=== PATIENT | male | born 2005 | race Caucasian/White ===

== ENCOUNTER 2023-10-19 15:15 | Emergency (ER) | payer OTHER, SELFPAY ==
--- NOTE | 2023-10-19 15:19 | EXP.UTC ---
Discharge Plan Disposition Patient Disposition: Home, Self-Care Condition: Good Prescriptions Prescriptions: New magnesium citrate [OneLAX Magnesium Citrate] Solution 150 ml PO BID Qty: 296 0RF polyethylene glycol 3350 [Miralax] 17 gram/dose powder 17 g PO BID 5 Days Qty: 170 0RF Rx Instructions: Mix with 8 ounces of Gatorade Referrals Follow up/Referrals: Danielle Lopez [Primary Care Provider] - See instructions Activity Restrictions/Add. Instructions Additional Instructions/Restrictions: Return to clinic if symptoms do not improve Clinical Impressions Clinical Impression: Constipation Instructions Patient Instructions: DI for Constipation Print Language Print Language: Mongolian Discharge ED Provider: Shi Nash [facility] HPI General Stated complaint: abd pain Time Seen by Provider: 10/19/23 16:01 History of Present Illness Provider Complaint: LLQ pain. Started 2 days ago while sitting still. Got worse. Has eased up a bit today. No urinary complaints. Normal bowel movements. No fever. No nausea, vomiting, diarrhea. No positional changes seem to make pain better or worse. Onset (ago): day(s) (2) Location: abdomen Radiation: non-radiation Relieving factors: none Exacerbating factors: none Associated symptoms: denies other symptoms Treatments prior to arrival: none Related Data Previous Rx's ?Medication ?Instructions ?Recorded magnesium citrate (OneLAX 150 ml PO BID #296 mL 10/19/23 Magnesium Citrate oral solution) polyethylene glycol 3350 17 17 g PO BID 5 days #170 grams 10/19/23 gram/dose oral powder (Miralax) Allergies Allergy/AdvReac Type Severity Reaction Status Date / Time No Known Allergies Allergy Verified 10/19/23 15:37 [facility] Disclaimer: The information contained in this section may have been updated after the patient was seen, as this information can be updated by other users. Surgical History (Updated 10/19/23 @ 15:37 by Funmi Clay RN) History of ear surgery History of tympanostomy tube placement Social History Smoking Status: Never smoker alcohol intake: never current occupational status: employed Travel in the last 8 weeks: None ROS Obtained: Yes All systems reviewed & no additional complaints except as documented Gastrointestinal Gastrointestingal: Reports abdominal pain Physical Exam General General appearance: alert and in no apparent distress Head Head exam: atraumatic, normocephalic and normal inspection Eye Eye exam: Present normal appearance, PERRL and EOMI ENT ENT exam: Present normal exam, normal oropharynx, mucous membranes moist, TM's normal bilaterally and normal external ear exam Neck Neck exam: Present normal inspection, full ROM and trachea midline; Absent meningismus or lymphadenopathy Chest Chest inspection: Present normal inspection and symmetric chest wall rise; Absent tenderness Respiratory Respiratory exam: Present normal lung sounds bilaterally; Absent respiratory distress Cardiovascular Cardiovascular exam: Present regular rate and normal rhythm; Absent JVD Abdominal Exam Abdominal exam: Present soft, tenderness and normal bowel sounds; Absent distention or guarding Abdominal tenderness: Present LLQ Extremities Exam Extremities exam: Present normal inspection, full ROM and normal capillary refill; Absent calf tenderness Back Exam Back exam: Present normal inspection; Absent tenderness or CVA tenderness (L) Neurological Exam Neurological exam: Present alert and oriented X3 Psychiatric Psychiatric exam: Present normal affect and normal mood Skin Skin exam: Present warm, dry, intact and normal color Lymphatic Lymphatic Findings: no adenopathy Medical Decision Making Shawn Inquiry Pt receiving controlled substance: No Lab Data Lab results reviewed: Yes I reviewed the patient's lab results. Radiology Data #1: Image(s): Chest and Abdomen Image Reviewed: Yes I rev
[2023-10-19 15:35] VITALS: BP 129/75; PULSE 65; RESP 19; TEMP 37.4; O2SAT 97; BMI 28.3
[2023-10-19 15:50] LABS: Apearance,Urine Clear (Clear); Bilirubin,Urine Negative (Negative); Blood, Urine Negative (Negative); Color,Urine Yellow (Yellow); Glucose,Urine (UA) Negative (Negative); Ketones,Urine Negative (Negative); Protein,Urine Negative (Negative); Specific Gravity, Urine >= 1.030 (1.005-1.030); UTC Leukocyte Esterase,Urine Negative (Negative); UTC Nitrate,Urine Negative (Negative); Urobilinogen,Urine 0.2 EU/dl (0.2)
--- NOTE | 2023-10-19 15:51 | XR_ITS ---
PROCEDURE INFORMATION: Exam: XR Complete Acute Abdomen Series Including Chest Exam date and time: 10/19/2023 3:50 PM Age: 18 years old Clinical indication: Abdominal pain; Other: Llq; Additional info: Llq pain TECHNIQUE: Imaging protocol: Radiologic exam. Complete acute abdomen series, including 2 or more views of the abdomen and a single view chest. COMPARISON: No relevant prior studies available. FINDINGS: Lungs: Normal. No consolidation. Pleural spaces: Normal. No pleural effusions. No pneumothorax. Heart/Mediastinum: Normal. No cardiomegaly. Gastrointestinal tract: Nonspecific bowel gas pattern. Intraperitoneal space: Normal. No free air. Bones/joints: Normal. No acute fracture. Soft tissues: Normal. Other findings: Mild stool burden IMPRESSION: No evidence of acute abnormality.
--- NOTE | 2023-10-19 15:52 | PC.NURSE ---
RADIOLOGY NOTIFIED OF X-RAY AT THIS TIME
[2023-10-19 16:30] VITALS: BP 129/75; PULSE 65; RESP 19; TEMP 37.4; O2SAT 97
== END 2023-10-19 16:34 | disposition home or self-care (01) ==
PROVIDERS: Emergency Provider Physician Assistant; PCP Pediatrics
DX: R10.32 Left lower quadrant pain (principal); K59.00 Constipation, unspecified
CPT/HCPCS: 74021; 81003; 99204; 99212; G0463